=== PATIENT | male | born 1960 | race Caucasian/White ===

== ENCOUNTER → 2017-03-25 | Outpatient (CLI) | payer OTHER ==
[~2017-03-25] MED LIST: ACETAMINOPHEN PO; AL-MAG HYDROX-S30 M1 PO; ASPIRIN81 M2 PO; ASPIRIN81 MG PO; CIPRO PO; CLOPIDOGREL75 MG PO; DOCUSATE SODIU100 MG PO; FLAGYL PO; FLOMAX0.4 M1 PO; HYDROCODON-ACE1 EAC7 PO; IMDUR-ER30 M1 PO; K-DUR10 MEQ PO; LEVAQUIN250 MG PO; LIPITOR PO; LISINOPRIL5 MG PO; LOPRESSOR PO; LORTAB 10-3251 EACH PO; LORTAB 5-325 M1 EACH PO; MULTI VITAMIN1 EACH PO; MYCAMINE100 MG/VIA IV; NITROGLYGERIN0.4 MG SL; NO MEDICATIONS; NORVASC PO; PERCOCET 5/321 UDTAB PO; PLAVIX PO; PRILOSEC20 M1 PO; PROTONIX PO; TIGECYCLINE IV; ZOFRAN ODT4 MG PO
[2017-03-25 11:27] LABS: BUN/CREATININE RATIO 21.42; CALCIUM SERUM 9.3 mg/dL (8.4-10.2); CREATININE SERUM 0.7 mg/dL (0.6-1.4); POTASSIUM 3.7 mmol/L (3.5-5.1)
== END | disposition home or self-care (01) ==
LOC: CLAB 10:14
PROVIDERS: Internal Medicine Interventional Cardiology
DX: E78.5 Hyperlipidemia, unspecified (principal)
CPT/HCPCS: 36415; 80048

== ENCOUNTER → 2017-04-24 | Outpatient (CLI) | payer OTHER ==
--- NOTE | ~2017-04-24 | TH ---
Unit #: [id number] #: [id number] Patient: ALDAIR GARCIA [id number] [address] [address] [id number] O MR#: [id number] NAME: ALDAIR GARCIA. : 1960 SEX: M STUDY DATE/TIME: 04/24/2017 UNIT: [facility] ROOM: STUDY DESCRIPTION: Attending Physician: Miguel Moura M.D. Referring Physician: Miguel Moura M.D. Primary Care Physician: Eric Cedeno M.D. CARDIOLOGY REPORT EXAM Stress nuclear and ECG combined. INDICATION Dyspnea, inability to exercise, prior OK, stent, hypertension, dyslipidemia. SUMMARY Patient attempted exercise but was unable. The patient was then given Lexiscan intravenously and technetium 99 Cardiolite 12 and 32 mCi at rest and stress, respectively. Appropriate views were obtained. FINDINGS The rest and stress ECG showed no diagnostic ST shifts. During stress, the patient experienced 4 out of 10 chest pain and 2 out of 10 chest pain, but there were no ECG changes during these times. Heart rate increased from 78 to 107, and blood pressure increased from 144/102 to 155/105. Perfusion images demonstrate suboptimal uptake at rest but normal uptake with stress with the exception of apical thinning. There are no differences between rest and stress. Gated perfusion wall motion analysis demonstrates end-diastolic volume of 90 mL and ejection fraction 55% with only mild lateral wall hypokinesis. Summed stress score is zero. IMPRESSION 1. Myocardial perfusion scan shows no ischemia or infarction. 2. Lexiscan stress ECG shows no ischemia. 3. Wall motion analysis demonstrates lateral wall hypokinesis without a perfusion defect. Clinical correlation recommended. 4. Normal left ventricular size and normal overall ejection fraction. 1. Dictated by... Starr Cervantes/timothy TD: 04/24/2017 17:50 JOB #: [id number] Unit #: [id number] #: [id number] Patient: ALDAIR GARCIA CARDIOLOGY REPORT Page 1 of 1 X Kevin Hunt MD CARDIOLOGY REPORT
== END | disposition home or self-care (01) ==
LOC: CNUC 07:58
DX: E78.5 Hyperlipidemia, unspecified (principal)
CPT/HCPCS: 78452; 93017; A9500; J2785

== ENCOUNTER 2017-05-19 14:00 | Inpatient (IN) | payer OTHER ==
--- NOTE | ~2017-05-19 | HP ---
Unit #: [id number] #: [id number] Patient: ALDAIR GARCIA [id number] [address] [place], [place] [address] [id number] I MR#: [id number] NAME: ALDAIR GARCIA. ROOM: 89941 Age: 56 Sex: M Admission Date: 05/19/2017 : 1960 Attending Physician: Katarina Chirinos M.D. Primary Care Physician: Eric Cedeno M.D. HISTORY AND PHYSICAL CHIEF COMPLAINT Acute kidney injury, chest pain, abdominal pain. HISTORY OF PRESENT ILLNESS This 56-year-old male with CAD, hypertension, is admitted for abdominal pain, chest pain, and acute kidney injury. The patient was in his usual state of health until about six days ago when he began to experience substernal chest pain with pain into the right side of his abdomen associated with nausea, vomiting, some shortness of breath, not improved with nitroglycerin. Symptoms worsened three days ago and due to intractable nonbloody nausea and vomiting, patient noted decreased urinary output. Also has been experiencing fevers, sweats, chills. Denies urinary symptoms or cough. Does complain of right-sided abdominal pain, right mid abdomen mainly. Presents to this emergency department where he is somewhat tachycardic with a somewhat low blood pressure. Labs are notable for acute kidney injury, mild urinary tract infection. CT scan shows a subtle abnormality of the gallbladder which may represent a gallbladder neck stone. In the ER, he was bolused with 2 liters of saline, given Zofran and Rocephin. PAST MEDICAL HISTORY 1. Previous history of alcohol abuse but minimal for the past several months. 2. Hypertension. 3. Hyperlipidemia. 4. DJD. 5. Admission 2015 for diverticular perforation resulting in a pelvic abscess requiring partial colectomy and temporary colostomy. 6. Admission 12/16/2016 for uct-LK-bxxadfgeh myocardial infarction with cardiac catheterization showing significant disease in the LAD requiring PCI and stent. Ejection fraction 45%. 7. Hand surgery. 8. Kidney stone requiring surgery. ALLERGIES No known drug allergies. HOME MEDICATIONS 1. Protonix 40 mg daily. 2. Lopressor 25 mg b.i.d. 3. P.r.n. Colace. 4. Lipitor 20 mg h.s. 5. Aspirin 81 mg daily. Unit #: [id number] #: [id number] Patient: ALDAIR GARCIA 6. Plavix 75 mg daily. 7. Lortab 10/325 q.6 h. as needed. 8. Norvasc 10 mg daily. The patient really has not been taking any of his medicines since he developed nausea and vomiting over the past three days. SOCIAL HISTORY Patient lives with his parents. He smokes about a third-pack per day of tobacco. He was previously a heavy drinker but stopped drinking several months ago. Rarely drinks alcohol currently. FAMILY HISTORY Negative for CAD. REVIEW OF SYSTEMS Notable nausea, vomiting, chest and abdominal pain, fevers, sweats, chills, above-mentioned surgeries, CAD, hypertension, hyperlipidemia, DJD. All other systems were reviewed and are negative. PHYSICAL EXAMINATION VITAL SIGNS: Temperature 96.8, pulse 124, respirations 25, blood pressure 98/74, O2 saturation 97% on room air. GENERAL: Pleasant, 56-year-old thin male currently in no acute distress. HEENT: Eyes PERRLA. Extraocular muscles are intact. Pharynx benign. Dry mucosal membranes. NECK: Supple without adenopathy or thyromegaly. CHEST: Clear. HEART: Normal S1, S2 without S3, S4 or murmur. ABDOMEN: Bowel sounds are present. Patient is tender mainly in the right upper quadrant and right mid abdomen with mild tenderness in the right lower quadrant. No rebound or guarding. No hepatosplenomegaly or masses. Well-healed midline scar and a colostomy with some loose stool in the colostomy bag. EXTREMITIES: Without clubbing, cyanosis, or edema. Pedal pulses are present but diminished. NEUROLOGIC: Awake, alert, oriented. Cranial nerves are intact. Equal strength throughout. DIAGNOSTIC STUDIES LABORATORY: Hematocrit 46.9, white blood cell count 23.1, normal platelet count, 2 bands are noted. SMA-12 glucose 121, BUN 49, creatinine 3.5 up from a BUN of 15, creatinine 0.7 in March. CO2 is 18, calcium 18.3, protein 9.9, albumin 5.5, bilirubin 2.3 up from a normal bilirubin previously. Alkaline phosphatase 103. Normal amylase. Negative cardiac markers. Urinalysis positive leukocyte esterase, nitrates, protein, glucose with 2-5 rbc's and 10-25 wbc's and no bacteria. IMAGING: Chest x-ray there may be a right upper lobe infiltrate. CT scan of the abdomen and pelvis with postop changes, no acute disease. Partial colectomy and colostomy. Subtle abnormality at the neck of the gallbladder which could be a stone. CARDIOVASCULAR: EKG shows a sinus tachycardia, rate 125, otherwise normal. ASSESSMENT Unit #: [id number] #: [id number] Patient: ALDAIR GARCIA 1. Acute kidney injury, in large part related to dehydration. 2. Early sepsis which may be related to urinary tract infection versus gallbladder disease. 3. Nausea and vomiting with right-sided abdominal pain. 4. Atypical chest pain and history of patient with coronary artery disease. 5. Ischemic cardiomyopathy. Ejection fraction 45%. Status post PCI and stent of the LAD. 6. Hypertension. 7. Hyperlipidemia. 8. Status post colostomy with partial colectomy for perforated diverticulum with a pelvic abscess around [place]. PLAN 1. Aggressive IV fluids. 2. Add bicarb to IV fluids. 3. Check postvoid residual and recheck labs in the morning. 4. Hold Norvasc for now. 5. Zosyn pending urine cultures. 6. Gallbladder ultrasound. 7. SCDs for DVT prophylaxis. 8. Serial cardiac enzymes and consult Cardiology. 9. Further plans and consultants depending on above. Dictated by Katarina Chirinos M.D. AML/cs TD: 05/19/2017 21:28 JOB #: [id number] CC: Art Goldman M.D. HISTORY AND PHYSICAL Page 1 of 1 X Katarina Chirinos MD HISTORY AND PHYSICAL
--- NOTE | ~2017-05-19 | CO ---
Unit #: [id number] #: [id number] Patient: ALDAIR GARCIA [id number] [address] [place], [place] [address] [id number] I MR#: [id number] NAME: ALDAIR GARCIA. ROOM: 548 Age: 56 Sex: M Admission Date: 05/19/2017 : 1960 Attending Physician: Yesenia Grant M.D. Primary Care Physician: Eric Cedeno M.D. CONSULTATION REPORT REASON FOR CONSULTATION Chest pain with elevated troponin. HISTORY OF PRESENT ILLNESS A 56-year-old gentleman, who has a history of hypertension, high cholesterol. He has history of coronary artery disease and has a stent to his LAD in 12/2016. He presented yesterday, because of right-sided abdominal pain with nausea and vomiting. He was not taking his oral medication and fluids. When he presented to the emergency room, he was tachycardic and hypertensive. He received IV fluids. At that time, he also had some chest pain. The chest pain is resolved. He denies history of orthopnea, PND, palpitation, or syncope. He has elevated troponin, which is 0.10 which qualify in the range of myocardial infarction. PAST MEDICAL HISTORY Positive for coronary artery disease, stenting of the LAD, he has 50% stenosis in the circumflex artery. EF was 45%. He also has a history of hypertension and hyperlipidemia. The patient also has history of colostomy due to diverticular perforation. He has a history of kidney stones. ALLERGIES He is not allergic to any medications. MEDICATIONS He takes Protonix 40 mg daily, Lopressor 25 mg b.i.d., Lipitor 20 mg once a day, aspirin 81 mg daily, Plavix 75 mg daily, Norvasc 10 mg daily. SOCIAL HISTORY The patient lives with parents. He continues to smoke. He smokes about third pack per day. The patient used to drink, but does not drink now. FAMILY HISTORY Negative for premature CAD. REVIEW OF SYSTEMS Notable for nausea, vomiting, chest and abdominal pain, fevers, sweats, chills. All other systems reviewed and they are negative. PHYSICAL EXAMINATION GENERAL: He looks comfortable. VITAL SIGNS: His heart rate right now is 80, blood pressure is 140/100. HEENT: Eyes, conjunctivae normal. Pupils are round and reactive. Oral mucosa is moist. No central cyanosis. Unit #: [id number] #: [id number] Patient: ALDAIR GARCIA NECK: He has no thyromegaly. Carotid upstroke is normal. CHEST: He is breathing normal and clear on auscultation. CARDIAC: There is no parasternal lift. S1 and S2 normally heard. No gallop. No murmur. ABDOMEN: Soft. Liver and spleen not enlarged. Abdominal aorta not palpable. Guaiac test not indicated. EXTREMITIES: He has no pedal edema. 2+ bilateral femoral and dorsalis pedis vessels. Digits, no clubbing. SKIN: No rash or abnormal pigmentation. NEUROLOGICAL: He is oriented x3. Mood is normal. Muscle tone in all extremities normal. DIAGNOSTIC STUDIES LABORATORY RESULTS: His creatinine is 2.5, BUN is 49, both are elevated. White cell count is 23,000 that is also elevated. His urine is positive for nitrites and esterase and there are rbc's and wbc's consistent with urinary tract infection. ASSESSMENT 1. The patient presented with urinary tract infection with early sepsis, but now his sepsis has resolved and he is improving with antibiotics. 2. The patient definitely has acute kidney injury due to volume depletion and he was taking antihypertensive medications. 3. The patient definitely has a chest pain and elevated troponin. The patient is having acute non-ST elevation myocardial infarction, but right now, he is pain-free. 4. History of hypertension and high cholesterol. PLAN From cardiac standpoint of view, he is on appropriate medication. His IV fluids have normalized his blood pressure, but this patient will need a repeat cardiac catheterization because he has chest pain and elevated troponin. We will do his cardiac catheterization once his kidney is normalized. Dictated by... Starr Ablrecht/genoveva TD: 05/21/2017 05:36 JOB #: [id number] CONSULTATION REPORT Page 1 of 1 X Luis Walker MD CONSULTATION REPORT
--- NOTE | ~2017-05-19 | NM21 ---
[facility] A Service of [facility] RADIOLOGY TEXT RESULTS PATIENT: ALDAIR GARCIA LOCATION: [facility] 548-01 : [birth year] UNIT #: [id number] AGE: [address]: Yesenia Grant MD SEX: M ORDER DR: [id number] [place] [id number] [facility]. [place], [place] [address] [id number] I MR#: [id number] Acc #: [id number] NAME: ALDAIR GARCIA. : 1960 SEX: M STUDY DATE/TIME: 05/21/2017 9:50 UNIT: [facility] ROOM: [facility] STUDY DESCRIPTION: NM Hepatobiliary W GB Attending Physician: Yesenia Grant M.D. Ordering Physician: Rodri Hernandez M.D. Primary Care Physician: Eric Cedeno M.D. MEDICAL IMAGING REPORT This report is preliminary unless electronic signature is present EXAM HIDA scan without Kinevac. DATE 05/21/2017 HISTORY Nausea and vomiting all weekend with bloating, diarrhea, hiccups/belching, chest pressure, back pain and umbilical pain. Patient states symptoms started after diverticulitis surgery on 2015. Myocardial infarction December 2016. COMPARISON Gallbladder ultrasound 05/20/2017. CT abdomen and pelvis with contrast 05/19/2017. FINDINGS Following the intravenous administration of 5.59 mCi technetium 99m Choletec, anterior planar images were obtained of the abdomen at 15-minute intervals for the first hour and subsequently at 85 minutes. Normal radiopharmaceutical uptake is demonstrated within the liver. There is gradual clearance of radiopharmaceutical into the small bowel over the course of the examination indicating patency of the common bile duct. The gallbladder is subsequently visualized between the 60 to 85 minutes, indicating patency of the cystic duct. IMPRESSION No scintigraphic evidence of acute or chronic cholecystitis. Dictated by... Regina Keen M.D. [facility] A Service of [facility] RADIOLOGY TEXT RESULTS PATIENT: ALDAIR GARCIA LOCATION: [place] [id number] : [birth year] UNIT #: [id number] AGE: [address]: Yesenia Grant MD SEX: M ORDER DR: THIS IS AN ELECTRONICALLY VERIFIED REPORT Regina Keen M.D. at 05/22/2017 8:36 AM ALIZE/kevon TD: 05/21/2017 13:55 JOB #: [id number] MEDICAL IMAGING REPORT Page 1 of 1 COPY
--- NOTE | ~2017-05-19 | EKG ---
PATIENT: ALDAIR GARCIA UNIT #: [id number] Ventricular Rate: 63 BPM Atrial Rate: 63 BPM P-R Interval: 194 ms QRS Duration: 82 ms Q-T Interval: 412 ms QTC Calculation(Bezet): 421 ms P [place]: 51 degrees Calculated R [place]: 42 degrees Calculated T [place]: 62 degrees Diagnosis Line: Normal sinus rhythm Diagnosis Line: Normal ECG Diagnosis Line: When compared with ECG of 19-MAY-2017 14:12, Diagnosis Line: Vent. rate has decreased BY 62 BPM Diagnosis Line: Confirmed by MARILOU PUCKETT MD ([id number]) on Diagnosis Line: 05/22/2017 7:35:56 AM INTERPRETING : TERESITA
--- NOTE | ~2017-05-19 | EKG ---
PATIENT: ALDAIR GARCIA UNIT #: [id number] Ventricular Rate: 125 BPM Atrial Rate: 125 BPM P-R Interval: 138 ms QRS Duration: 80 ms Q-T Interval: 312 ms QTC Calculation(Bezet): 450 ms P [place]: 57 degrees Calculated R [place]: 59 degrees Calculated T [place]: 88 degrees Diagnosis Line: Sinus tachycardia Diagnosis Line: Nonspecific ST and T wave abnormality Diagnosis Line: Abnormal ECG Diagnosis Line: When compared with ECG of 18-DEC-2016 05:50, Diagnosis Line: Non-specific change in ST segment in Lateral leads Diagnosis Line: Nonspecific T wave abnormality now evident in Diagnosis Line: Lateral leads Diagnosis Line: Confirmed by MARILOU PUCKETT MD ([id number]) on Diagnosis Line: 05/19/2017 10:20:32 PM INTERPRETING MD: TERESITA
--- NOTE | ~2017-05-19 | CO ---
Unit #: [id number] #: [id number] Patient: ALDAIR GARCIA [id number] [address] [place], [place] [address] [id number] I MR#: [id number] NAME: ALDAIR GARCIA. ROOM: 548 Age: 56 Sex: M Admission Date: 05/19/2017 : 1960 Attending Physician: Yesenia Grant M.D. Primary Care Physician: Eric Cedeno M.D. Consultation Date: 05/20/2017 CONSULTATION REPORT CHIEF COMPLAINT Abdominal pain. HISTORY OF PRESENT ILLNESS This is a 56-year-old gentleman, who has had a 6-day history of right upper quadrant pain associated with some nausea and vomiting. He says he feels slightly better today, but is still fairly symptomatic. PAST MEDICAL HISTORY Significant for history of alcohol use, coronary artery disease, hypertension, elevated lipids, and recent myocardial infarction. ALLERGIES He has no known drug allergies. PAST SURGICAL HISTORY He has had a recent exploratory laparotomy with colectomy and colostomy secondary to perforation related to diverticulitis. He also has a history of hand surgery and kidney stones. MEDICATIONS Please see med rec list. He has actively been taking Plavix and aspirin. SOCIAL HISTORY He does smoke and he stopped drinking approximately 3 months ago. FAMILY HISTORY Negative. REVIEW OF SYSTEMS Negative for fevers or jaundice. PHYSICAL EXAMINATION VITAL SIGNS: Temperature is 97.7, heart rate 66, respiratory rate 16, blood pressure is 98/69, and BMI is 25. ABDOMEN: Soft. He has a midline incision, is healed, and a left lower quadrant colostomy. There is some 1+ right upper quadrant tenderness. DIAGNOSTIC STUDIES LABORATORY RESULTS: He had initial bilirubin of 2.3 that went down to 1.1 and white blood count has gone from 23,000 down to 12,000. Alkaline phosphatase has similarly gone down, which was 103 and now 58, and he has had a drop in his hemoglobin from 15 to 10.9. Unit #: [id number] #: [id number] Patient: ALDAIR GARCIA IMAGING STUDIES: CT and ultrasound shows small gallstones, but no gallbladder wall thickening. OVERALL IMPRESSION This gentleman has cholelithiasis, question is whether he passed a common bile duct stone spontaneously. He is also actively taking Plavix and aspirin for recent myocardial infarction. PLAN Our plan is to hold his blood thinners. Check a HIDA scan. Get cardiac clearance and continue antibiotics. He certainly has a risk of having the gallbladder done through an open surgery given his recent ex-lap as well as potential for bleeding with him being on both aspirin and Plavix. Further recommendations are to follow. Dictated by... Osvaldo Bhakta III, M.D. VCL/genoveva TD: 05/22/2017 04:44 JOB #: [id number] CONSULTATION REPORT Page 1 of 1 X Osvaldo Bhakta III, MD CONSULTATION REPORT
--- NOTE | ~2017-05-19 | CR72 ---
[facility] A Service of [facility] RADIOLOGY TEXT RESULTS PATIENT: ALDAIR GARCIA LOCATION: [facility] 548-01 : [birth year] UNIT #: [id number] AGE: [address]: Yesenia Grant MD SEX: M ORDER DR: [id number] [facility] [address] [facility]. [place], [place] [address] [id number] MR#: [id number] Acc #: [id number] NAME: ALDAIR GARCIA. : 1960 SEX: M STUDY DATE/TIME: 05/19/2017 14:27 UNIT: [facility] ROOM: STUDY DESCRIPTION: CR Chest Single View Portable Attending Physician: Lorene Giles M.D. Ordering Physician: Aldair Alvarez M.D. Primary Care Physician: Eric Cedeno M.D. MEDICAL IMAGING REPORT This report is preliminary unless electronic signature is present EXAM Portable chest INDICATIONS Chest pain today. COMPARISON STUDIES Comparison with 11/29/2016 FINDINGS There is some patchy density in the periphery of the right upper zone which may represent pneumonia. Correlate clinically with any symptoms. I would suggest a followup PA and lateral chest x-ray in 2-4 weeks to document clearing. Heart size normal. Calcified granulomas on the left. IMPRESSION Patchy density in the periphery of the right upper zone which may represent pneumonia. Correlate clinically. Short-interval followup PA and lateral chest x-ray recommended to document clearing. Dictated by... Moncho Sky M.D. THIS IS AN ELECTRONICALLY VERIFIED REPORT Moncho Sky M.D. at 05/20/2017 10:06 AM TIMMY/kathie TD: 05/19/2017 18:43 JOB #: [id number] MEDICAL IMAGING REPORT Page 1 of 1 COPY
--- NOTE | ~2017-05-19 | US67 ---
[facility] A Service of [facility] RADIOLOGY TEXT RESULTS PATIENT: ALDAIR GARCIA LOCATION: [facility] 548-01 : [birth year] UNIT #: [id number] AGE: [address]: Yesenia Grant MD SEX: M ORDER DR: [id number] [facility] [address] [facility] [facility] [place], [place] [address] [id number] I MR#: [id number] Acc #: [id number] NAME: ALDAIR GARCIA. : 1960 SEX: M STUDY DATE/TIME: 05/20/2017 7:59 UNIT: [facility] ROOM: [facility] STUDY DESCRIPTION: US Gallbladder Attending Physician: Yesenia Grant M.D. Ordering Physician: Katarina Chirinos M.D. Primary Care Physician: Eric Cedeno M.D. MEDICAL IMAGING REPORT This report is preliminary unless electronic signature is present EXAM Gallbladder ultrasound 05/20/17. HISTORY Right side chest pain with nausea and vomiting since 05/17/17. Right upper quadrant abdominal pain. CT scan of the abdomen obtained 05/19/17 suggested possible cholelithiasis. FINDINGS The liver demonstrates a slight increase in echotexture with attenuation of the ultrasound beam characteristic of mild fatty infiltration. No cystic or solid mass lesions were seen in the liver. The intra and extrahepatic bile ducts are not dilated. The gallbladder is distended and contains small gallstones in the gallbladder neck. There is no evidence of gallbladder wall thickening or pericholecystic fluid. The common duct measures 3 mm. The pancreas is poorly visualized due to overlying bowel gas. There is a 2 cm cyst on the right kidney. IMPRESSION 1. Fatty infiltration of the liver. 2. Distended gallbladder. Small gallstones are seen in the gallbladder neck. No evidence of gallbladder wall thickening or pericholecystic fluid. No intra or extrahepatic biliary ductal dilatation. 3. Poor visualization of the pancreas due to overlying bowel gas. 4. Right renal cyst. Dictated by... John Pardo M.D. THIS IS AN ELECTRONICALLY VERIFIED REPORT John Pardo M.D. at 05/21/2017 9:23 AM KRT/bd [facility] A Service of [facility] RADIOLOGY TEXT RESULTS PATIENT: ALDAIR GARCIA LOCATION: [facility] 548-01 : [birth year] UNIT #: [id number] AGE: [address]: Yesenia Grant MD SEX: M ORDER DR: TD: 05/20/2017 14:09 JOB #: [id number] MEDICAL IMAGING REPORT Page 1 of 1 COPY
--- NOTE | ~2017-05-19 | DS ---
Unit #: [id number] #: [id number] Patient: ALDAIR RILEY [id number] [address] [address] [id number] MR#: [id number] NAME: ALDAIR RILEY. ROOM: 548 Age: 56 Sex: M Admission Date: 05/19/2017 : 1960 Discharge Date: 05/22/2017 Attending Physician: Yesenia Grant M.D. Primary Care Physician: Eric Cedeno M.D. DISCHARGE SUMMARY PRINCIPAL DIAGNOSES 1. Sepsis secondary to probable viral gastroenteritis. 2. Elevated troponin with normal heart cath. 3. Acute kidney injury, prerenal, now resolved; discharge creatinine 0.7. 4. Asymptomatic cholelithiasis. 5. High anion gap metabolic acidosis secondary to uremia, now resolved. 6. Urinary retention, now resolved. 7. Coronary artery disease. 8. Hypokalemia. 9. Hypomagnesemia. 10. Hypertension. 11. Hyperlipidemia. 12. Tobaccoism. 13. Hepatic steatosis. CONSULTANTS 1. Dr. Walker, cardiology. 2. Dr. Bhakta, LSA. PROCEDURES Left-sided heart catheterization on May 22, 2017 with findings of ejection fraction of 45% to 50%. There was mild anterolateral hypokinesis. Left main was normal. LAD had a patent stent. Left circumflex had 40% stenosis at the obtuse marginal and 40% to 50% at the second obtuse marginal. RCA was 30% occluded. DIAGNOSTIC STUDIES IMAGING: Chest x-ray on May 19, 2017 with patchy density in the periphery of the right upper lung zone. CT of the abdomen and pelvis without contrast on May 19, 2017 with no acute intraabdominal or intrapelvic pathology noted. Subtle hyperdensity in the neck of the gallbladder noted. Right upper quadrant ultrasound on May 20, 2017 with fatty infiltration of liver. Distended gallbladder was noted. Small gallstones within the gallbladder neck noted. HIDA scan on May 21, 2017, which was negative for acute or chronic cholecystitis. CLINICAL HISTORY AND HOSPITAL COURSE Mr. Riley is a nice 56-year-old male who presented to the Unit #: [id number] #: [id number] Patient: ALDAIR RILEY emergency department with some chest pain and right upper quadrant and epigastric pain. Please refer to H and P for further details. Troponin was mildly elevated at 0.1 in the emergency department. At the same time his creatinine was found to be significantly elevated at 3.5. White blood cell count was also elevated at 23,000. CT scan of the abdomen and pelvis revealed some questionable stones in the gallbladder neck. The patient was subsequently admitted. In regard to the patient's questionable cholecystitis, he was placed on empiric Zosyn. Gallbladder ultrasound was as noted, and at this point LSA was consulted. The patient underwent HIDA scan, which was unremarkable. The patient's symptoms resolved with IV fluids with questionable role of antibiotics and PPI therapy. There are no plans for further GI workup. His abdominal pain has essentially resolved. No cholecystectomy at this time, but gallstones will have to be monitored in the future, particularly if he develops recurrent abdominal pain. I have not found any source of infection; thus, antibiotics have been discontinued. Cardiology was consulted regarding the patient's elevated troponin. Troponin did peak at 0.1, but the patient continued to have chest pain. He underwent cardiac cath, which results as noted. Imdur will be added. The patient will also continue on PPI therapy. The patient did have several electrolyte abnormalities, but these have been corrected during hospitalization. He will be discharged home later today. I will note renal function has also returned to normal with IV hydration. The patient did have several sick contacts prior to the onset of symptoms, and I suspect he had a viral gastroenteritis, which precipitated symptoms. DISCHARGE CONDITION Stable. DISCHARGE STATUS Discharge to home. DISCHARGE MEDICATIONS 1. Metoprolol tartrate 25 mg b.i.d. 2. Colace 100 mg daily p.r.n. constipation. 3. Lipitor 20 mg at bedtime. 4. Aspirin 81 mg daily. 5. Lortab 10/325 mg 1 tablet p.o. q.6 hours p.r.n. pain. 6. Plavix 75 mg daily. 7. Protonix 40 mg daily. 8. Imdur ER 30 mg daily. 9. Norvasc 10 mg daily. DISCHARGE INSTRUCTIONS Patient was instructed to follow a heart healthy diet. He can increase his activity as tolerated. To refrain from any further tobacco use. FOLLOW-UP 1. Patient will follow up with Dr. Walker or his primary film inspector in approximately 4 weeks. 2. He can follow up with his primary care provider in 2-4 weeks, as well. NOTE: Time spent on discharge 34 minutes. Unit #: [id number] #: [id number] Patient: ALDAIR RILEY Dictated by... Starr Hampton/jacinto TD: 05/23/2017 11:09 JOB #: [id number] DISCHARGE SUMMARY Page 1 of 1 X Yesenia Grant MD X DISCHARGE SUMMARY
--- NOTE | ~2017-05-19 | CT4 ---
[facility] A Service of [facility] & [facility] RADIOLOGY TEXT RESULTS PATIENT: ALDAIR GARCIA LOCATION: [facility] 548-01 : [birth year] UNIT #: [id number] AGE: [address]: Yesenia Grant MD SEX: M ORDER DR: [id number] [facility] [address] [facility] [place], [place] [address] [id number] MR#: [id number] #: [id number] NAME: ALDAIR GARCIA. : 1960 SEX: M STUDY DATE/TIME: 05/19/2017 16:26 UNIT: [facility] ROOM: [facility] STUDY DESCRIPTION: CT Abd and Pelv Wo Cont Attending Physician: Katarina Chirinos M.D. Ordering Physician: Aldair Alvarez M.D. Primary Care Physician: Eric Cedeno M.D. MEDICAL IMAGING REPORT This report is preliminary unless electronic signature is present EXAM CT abdomen and pelvis without contrast HISTORY Chest pain, nausea, vomiting, abdominal pain and constipation x2 days, difficulty urinating. COMPARISON CT abdomen and pelvis 12/08/2016 FINDINGS Axial images performed through the abdomen and pelvis following oral contrast only. Multiplanar reconstructed images reviewed at a workstation. This CT exam was performed with one or more of the following radiation dose reduction techniques: Automatic exposure control, adjustment of mA and/or kV according to patient size, and iterative reconstruction. The lung bases demonstrate a left lower lobe granuloma and multiple subacute or chronic right posterior rib fractures. No pulmonary infiltrates or effusions. Liver and spleen unremarkable except for multiple splenic granulomas. There are a few hepatic granulomas. Gallbladder demonstrates very subtle hyperdensity in the neck of the gallbladder, could represent a very small stone but no CT evidence of acute cholecystitis. Pancreas, kidneys and adrenal glands appear normal. Stomach and small bowel unremarkable. Patient has undergone a partial colon resection with a left lower quadrant colostomy. There are few scattered colonic diverticula. No evidence of obstruction or impaction. Retroperitoneum unremarkable. PELVIS: Bladder and prostate appear normal. Surgical clips noted in the pelvis. Osseous structures remarkable for multilevel degenerative disc changes L4-5, L5-S1. There is a subtle low-attenuation lesion right STS. [facility] A Service of [facility] & [facility] RADIOLOGY TEXT RESULTS PATIENT: ALDAIR GARCIA LOCATION: [facility] 548-01 : [birth year] UNIT #: [id number] AGE: [address]: Yesenia Grant MD SEX: M ORDER DR: kidney most likely represents a renal cyst. This is unchanged from prior studies and the prior contrasted exam confirms this as a cyst. IMPRESSION 1. No acute intraabdominal or intrapelvic pathology identified. No evidence of obstruction. 2. Postsurgical changes from partial colectomy and left lower quadrant colostomy. 3. Subtle hyperdensity in the neck of the gallbladder could represent a very small stone but no CT evidence of acute cholecystitis. Dictated by... Ravi Sky M.D. THIS IS AN ELECTRONICALLY VERIFIED REPORT Ravi Sky M.D. at 05/20/2017 3:08 PM CARA/yan TD: 05/20/2017 02:44 JOB #: [id number] MEDICAL IMAGING REPORT Page 1 of 1 COPY
[~2017-05-19 14:00] MED LIST changes: -ASPIRIN81 MG PO; -IMDUR-ER30 M1 PO; -LORTAB 10-3251 EACH PO; -NITROGLYGERIN0.4 MG SL; -NORVASC PO; -PLAVIX PO
[2017-05-19] MEDS ORDERED: PROTONIX PO ×2 (14:12→14:15)
[2017-05-19] MEDS ORDERED: LOPRESSOR PO (14:13)
[2017-05-19] MEDS ORDERED: DOCUSATE SODIU100 MG PO (14:13)
[2017-05-19] MEDS ORDERED: FLAGYL PO (14:14)
[2017-05-19] MEDS ORDERED: PLAVIX PO (14:14)
[2017-05-19] MEDS ORDERED: LIPITOR PO (14:14)
[2017-05-19] MEDS ORDERED: ASPIRIN81 MG PO (14:14)
[2017-05-19] MEDS ORDERED: NORVASC PO (14:15)
[2017-05-19] MEDS ORDERED: LORTAB 10-3251 EACH PO (14:15)
[2017-05-19 15:01] LABS: BASOPHIL# 0.2 X10e3 (0-0.3); BASOPHIL% 0.8 % (0-2.5); DIFF IND YES; EOSINOPHIL% 0.2 % (0.0-7.0); HEMATOCRIT 46.9 % (38.0-50.0); HEMOGLOBIN 15.8 gm/dL (13.0-16.0); LYMPHOCYTE# 2.1 X10e3 (1.0-3.5); MEAN CELL VOLUME 94.3 FL (83-96); MEAN CORPUSCULAR HEMOGLOBIN 31.7 PG (28-34); MEAN CORPUSCULAR HGB CONC 33.7 g/dL (30-36); MEAN PLATELET VOLUME 8.7 FL (6.5-11.5); MONOCYTE# 1.8 X10e3 (0-1.0); PLATELET COUNT 298 X10e3 (140-420); RED BLOOD COUNT 4.97 X10e (3.90-5.60); RED CELL DISTRIBUTION WIDTH 15.8 % (11.0-15.5); WHITE BLOOD COUNT 23.1 X10e3 (4.0-10.5)
[2017-05-19 15:19] LABS: ALBUMIN SERUM 5.5 g/dL (3.5-5.0); BILIRUBIN, DIRECT 0.3 mg/dL (0.0-0.2); BILIRUBIN,TOTAL 2.3 mg/dL (0.2-2.0); CALCIUM SERUM 10.3 mg/dL (8.4-10.2); CREATININE SERUM 3.5 mg/dL (0.6-1.4); GLOM FILT RATE Estimated 18.7 mL/min (>60); PROTEIN TOTAL SERUM 9.9 g/dL (6.0-8.3)
[2017-05-19 15:21] LABS: POC - CKMB <1.0 ng/mL (0.0-7.9); POC - TROPONIN 0.05 ng/mL (<=0.05)
[2017-05-19 15:44] LABS: ANISOCYTOSIS SL; PLATELET ESTIMATE NORMAL (NORMAL)
[2017-05-19 17:38] LABS: POC - CKMB <1.0 ng/mL (0.0-7.9); POC - TROPONIN <0.05 ng/mL (<=0.05)
[2017-05-19 17:45] LABS: URINE SOURCE CLEAN CATCH
[2017-05-19 18:04] LABS: URINE APPEARANCE CLOUDY; URINE BLOOD 3+ (NEG); URINE COLOR ORANGE; URINE GLUCOSE 100 MG/DL (NEG); URINE KETONE NEG (NEG); URINE LEUKOCYTE ESTERASE 1+ (NEG); URINE NITRATE POS (NEG); URINE PROTEIN 3+ (NEG); URINE SPECIFIC GRAVITY 1.047 (1.003-1.035); URINE UROBILINOGEN 0.2 MG/DL (NEG)
[2017-05-19 18:07] LABS: CULTURE INDICATED? YES; URINE BACTERIA AUWI NEG (NEGATIVE); URINE SQUAMOUS EPITHELIAL CELL FEW /[HPF]
[2017-05-19 18:08] LABS: URINE BILIRUBIN NEG (NEG)
[2017-05-19 18:10] LABS: U HYALINE CASTS AUWI 0-2 /[LPF]; URINE GRANULAR CAST 0-2 /[HPF]
[2017-05-19 23:42] LABS: %MB 1.2 % (0.0-4.0); MB 0.8 ng/ml
[2017-05-20 06:22] LABS: %MB 1.7 % (0.0-4.0); MB 1.1 ng/ml
[2017-05-20 15:13] LABS: MEAN CORPUSCULAR HEMOGLOBIN 32.1 PG (28-34); MEAN CORPUSCULAR HGB CONC 34.1 g/dL (30-36); MEAN PLATELET VOLUME 8.5 FL (6.5-11.5); RED BLOOD COUNT 3.41 X10e (3.90-5.60); RED CELL DISTRIBUTION WIDTH 15.2 % (11.0-15.5); WHITE BLOOD COUNT 12.3 X10e3 (4.0-10.5)
[2017-05-20 15:14] LABS: HEMOGLOBIN 10.9 gm/dL (13.0-16.0)
[2017-05-20 15:45] LABS: ALBUMIN SERUM 3.3 g/dL (3.5-5.0); BILIRUBIN,TOTAL 1.1 mg/dL (0.2-2.0); BUN/CREATININE RATIO 38.18; CALCIUM SERUM 7.8 mg/dL (8.4-10.2); CREATININE SERUM 1.1 mg/dL (0.6-1.4); GLOM FILT RATE Estimated 75.7 mL/min (>60); PROTEIN TOTAL SERUM 6.2 g/dL (6.0-8.3)
[2017-05-20 15:46] LABS: POTASSIUM 3.1 mmol/L (3.5-5.1)
[2017-05-21 06:20] LABS: HEMOGLOBIN 11.5 gm/dL (13.0-16.0); MEAN CELL VOLUME 95.3 FL (83-96); MEAN CORPUSCULAR HEMOGLOBIN 32.4 PG (28-34); MEAN CORPUSCULAR HGB CONC 33.9 g/dL (30-36); MEAN PLATELET VOLUME 8.5 FL (6.5-11.5); RED BLOOD COUNT 3.57 X10e (3.90-5.60); RED CELL DISTRIBUTION WIDTH 15.2 % (11.0-15.5); WHITE BLOOD COUNT 9.9 X10e3 (4.0-10.5)
[2017-05-21 07:08] LABS: ALBUMIN SERUM 3.1 g/dL (3.5-5.0); BILIRUBIN,TOTAL 1.2 mg/dL (0.2-2.0); BUN/CREATININE RATIO 32.85; CALCIUM SERUM 7.9 mg/dL (8.4-10.2); CREATININE SERUM 0.7 mg/dL (0.6-1.4); MAGNESIUM 1.5 mg/dL (1.6-3.0); POTASSIUM 3.4 mmol/L (3.5-5.1); PROTEIN TOTAL SERUM 5.5 g/dL (6.0-8.3)
[2017-05-22 06:25] LABS: HEMATOCRIT 30.6 % (38.0-50.0); HEMOGLOBIN 10.4 gm/dL (13.0-16.0); MEAN CELL VOLUME 94.8 FL (83-96); MEAN CORPUSCULAR HEMOGLOBIN 32.3 PG (28-34); RED BLOOD COUNT 3.23 X10e (3.90-5.60); RED CELL DISTRIBUTION WIDTH 14.9 % (11.0-15.5); WHITE BLOOD COUNT 8.6 X10e3 (4.0-10.5)
[2017-05-22 06:58] LABS: PARTIAL THROMBOPLASTIN TIME 27.3 SECONDS (23.5-31.3); PROTHROMBIN TIME (PATIENT) 11.2 SECONDS (10.0-11.7)
[2017-05-22 07:35] LABS: BUN/CREATININE RATIO 16.66; CALCIUM SERUM 8.4 mg/dL (8.4-10.2); CREATININE SERUM 0.6 mg/dL (0.6-1.4); MAGNESIUM 1.7 mg/dL (1.6-3.0); POTASSIUM 3.5 mmol/L (3.5-5.1)
[2017-05-22] MEDS ORDERED: IMDUR-ER30 M1 PO (18:28)
[2017-05-22] MEDS ORDERED: NITROGLYGERIN0.4 MG SL (19:36)
== END 2017-05-22 20:00 | disposition home or self-care (01) | DRG 871 ==
LOC: CED 14:00 → CEDOF 19:30 → C5B 19:30 → CED 19:51 → CEDOF 19:51 → C5B 21:38
PROVIDERS: Emergency Medicine; Internal Medicine; Internal Medicine Cardiovascular Disease; Nurse Practitioner; Student in an Organized Health Care Education/Training Program
PROC: 4A023N7 Measurement of Cardiac Sampling and Pressure, Left Heart, Percutaneous Approach (ICD-10-PCS; principal; 2017-05-22)
PROC: B211YZZ Fluoroscopy of Multiple Coronary Arteries using Other Contrast (ICD-10-PCS; 2017-05-22)
PROC: B215YZZ Fluoroscopy of Left Heart using Other Contrast (ICD-10-PCS; 2017-05-22)
DX: A41.9 Sepsis, unspecified organism (principal); I21.4 Non-ST elevation (NSTEMI) myocardial infarction; E87.2 Acidosis; N17.9 Acute kidney failure, unspecified; N18.3 Chronic kidney disease, stage 3 (moderate); E83.42 Hypomagnesemia; K75.81 Nonalcoholic steatohepatitis (NASH); A08.4 Viral intestinal infection, unspecified; I12.9 Hypertensive chronic kidney disease with stage 1 through stage 4 chronic kidney disease, or unspecified chronic kidney disease; E86.0 Dehydration; Z95.5 Presence of coronary angioplasty implant and graft; E78.00 Pure hypercholesterolemia, unspecified; R00.0 Tachycardia, unspecified; Z87.442 Personal history of urinary calculi; F17.210 Nicotine dependence, cigarettes, uncomplicated; K80.20 Calculus of gallbladder without cholecystitis without obstruction; R33.9 Retention of urine, unspecified; I25.10 Atherosclerotic heart disease of native coronary artery without angina pectoris; E87.6 Hypokalemia; I25.5 Ischemic cardiomyopathy; I25.2 Old myocardial infarction; Z79.02 Long term (current) use of antithrombotics/antiplatelets; Z79.82 Long term (current) use of aspirin; R07.9 Chest pain, unspecified
CPT/HCPCS: 36415; 51701; 71010; 74176; 76705; 78226; 80048; 80053; 80076; 81003; 82550; 82553; 83690; 83735; 83880; 84132; 84484; 85025; 85027; 85610; 85730; 87086; 87493; 93005; 96361; 96365; 96375; 99285; A9537; C1769; C1887; J0696; J1644; J2250; J2270; J2405; J2543; J3010; J3475